=== PATIENT | male | born 1975 | race Caucasian/White ===

== ENCOUNTER 2022-06-23 22:42 | Emergency (ER) | payer SELFPAY ==
[~2022-06-23] VITALS: Ht 165.1 cm; Wt 100.0 kg
[2022-06-24] MEDS ORDERED: BACITRACIN ZINC OINT UDPKT TOP ONE
[2022-06-24] MEDS ORDERED: LIDOCAINE HCL/EPINEPHRINE 1%-EPI 1:100,000 20 ML VIAL INFIL ONE
[2022-06-24] MEDS ORDERED: LIDOCAINE HCL/PF 1% 10 MG/ML 5ML VIAL INFIL ONE (01:00)
[2022-06-24 05:13] VITALS: BP 126/80
== END 2022-06-24 05:13 | disposition home or self-care (01) ==
LOC: ER 22:52
DX: S02.2XXA Fracture of nasal bones, initial encounter for closed fracture (principal); W18.39XA Other fall on same level, initial encounter; Y93.89 Activity, other specified; Y92.89 Other specified places as the place of occurrence of the external cause; Y99.8 Other external cause status
CPT/HCPCS: 70450; 70486; 99284; J3490